=== PATIENT | male | born 1960 | race American Indian/Alaskan Native ===

== ENCOUNTER 2018-02-08 10:19 | Emergency (ER) | payer OTHER ==
[2018-02-08] MEDS ORDERED: Aspirin 81 MG Tab.Chew PO ONE (11:42)
[2018-02-08] MEDS ORDERED: Heparin Sodium 5,000 Units/ML Vial IVPUSH ONE (11:44)
--- NOTE | 2018-02-08 11:47 | EDM.PDOC ---
ED HPI GENERAL MEDICAL PROBLEM - General Chief Complaint: Cardiovascular Problem Stated Complaint: IRREGULAR HEARTBEAT Time Seen by Provider: 02/08/18 10:36 Source of Information: Reports: Patient, RN Notes Reviewed - History of Present Illness INITIAL COMMENTS - FREE TEXT/NARRATIVE: 58-year-old male comes in with concern about palpitations, heartburn discomfort becoming more frequent and mild dizziness. He operates heavy equipment. He was at work yesterday when he did develop what he thought was heartburn type discomfort of his anterior chest. when questioned about that he does admit that there was a heaviness component to that without radiation. The pain did go away last evening. He had another 20-30 minute episode of discomfort this morning and felt he better get that checked out. He has history of hypertension , has history of Crohn's disease. He has no known personal history for coronary artery disease. He is not diabetic. He does chew tobacco. He does have a positive family history for heart disease with a younger sister requiring open heart surgery about 3 years ago. He has had occasional heartburn in the past. He thought his discomfort yesterday and today was also heartburn. He denies history for known peptic ulcer disease. There has been no recent GI bleeding. - Related Data Allergies Allergy/AdvReac Type Severity Reaction Status Date / Time No Known Allergies Allergy Verified 02/08/18 10:26 Home Meds: Home Meds Adalimumab [Humira] 10 mg SQ ASDIRECTED 02/08/18 [History] Cholecalciferol (Vitamin D3) [Vitamin D3] 1,000 unit PO DAILY 02/08/18 [History] Colestipol [Colestipol HCl] 1 gm PO BEDTIME 02/08/18 [History] Doxazosin [Doxazosin Mesylate] 2 mg PO DAILY 02/08/18 [History] Omeprazole 20 mg PO DAILY 02/08/18 [History] Past Medical History Cardiovascular History: Reports: Hypertension Gastrointestinal History: Reports: GERD - Past Surgical History GI Surgical History: Reports: Colostomy Social & Family History - Tobacco Use Smoking Status *Q: Never Smoker Second Hand Smoke Exposure: No - Recreational Drug Use Recreational Drug Use: No ED ROS GENERAL - Review of Systems Review Of Systems: See Below Constitutional: Denies: Fever, Chills, Diaphoresis HEENT: Reports: No Symptoms Respiratory: Reports: Cough. Denies: Shortness of Breath, Pleuritic Chest Pain Cardiovascular: Reports: Chest Pain GI/Abdominal: Denies: Abdominal Pain, Nausea, Vomiting Musculoskeletal: Denies: Shoulder Pain, Arm Pain, Back Pain Skin: Reports: No Symptoms Neurological: Reports: Dizziness (Mild, gone). Denies: Trouble Speaking, Difficulty Walking, Weakness ED EXAM, GENERAL - Physical Exam Exam: See Below General Appearance: Alert, No Apparent Distress Eye Exam: Bilateral Eye: PERRL Throat/Mouth: Normal Inspection Head: Atraumatic Neck: Supple, Full Range of Motion Respiratory/Chest: No Respiratory Distress, Lungs Clear, Normal Breath Sounds Cardiovascular: Regular Rate, Rhythm GI/Abdominal: Soft, Non-Tender Back Exam: Normal Inspection Extremities: Normal Inspection. No: Pedal Edema, Leg Pain, Increased Warmth, Redness Neurological: Alert, Oriented, No Motor/Sensory Deficits Skin Exam: Warm, Dry, Normal Color EKG INTERPRETATION EKG Date: 02/08/18 Rhythm: NSR Rate (Beats/Min): 67 Fletcher: Normal P-Wave: Present QRS: Normal ST-T: Other (t wave inversion lead III, slight st depression III and AVF) Course - Vital Signs Last Recorded V/S: Last Vital Signs Temp 98 F 02/08/18 10:25 Pulse 67 02/08/18 10:25 Resp 16 02/08/18 10:25 BP 141/94 H 02/08/18 10:25 Pulse Ox 95 02/08/18 10:25 - Orders/Labs/Meds Orders: Active Orders 24 hr Category Date Time Status EKG 12 Lead [EKG Documentation Completion] [RC] STAT Care 02/08/18 10:48 Active EKG Documentation Completion [RC] ASDIRECTED Care 02/08/18 10:42 Active EKG 12 Lead [EK] Stat Ther 02/08/18 10:42 Ordered Labs: Laboratory Tests 02/08/18 02/08/18 Range/Units 10:30 10:30 WBC 5.54 (4.23-9.07) K/mm3 RBC 4.49 L (4.63-6.08) M/mm3 Hgb 13.7 (13.7-17.5) gm/L Hct 41.0 (40.1-51.0) % MCV 91.3 (79.0-92.2) fl MCH 30.5 (25.7-32.2) pg MCHC 33.4 (32.2-35.5) g/dl RDW Std Deviation 47.0 H (35.1-43.9) fL Plt Count 196 (163-337) K/mm3 MPV 9.3 L (9.4-12.3) fl Neut % (Auto) 59.7 (34.0-67.9) % Lymph % (Auto) 30.7 (21.8-53.1) % [place] % (Auto) 7.9 (5.3-12.2) % Eos % (Auto) 1.1 (0.8-7.0) Baso % (Auto) 0.4 (0.1-1.2) % Neut # (Auto) 3.31 (1.78-5.38) K/mm3 Lymph # (Auto) 1.70 (1.32-3.57) K/mm3 [place] # (Auto) 0.44 (0.30-0.82) K/mm3 Eos # (Auto) 0.06 (0.04-0.54) K/mm3 Baso # (Auto) 0.02 (0.01-0.08) K/mm3 Sodium 139 (136-145) mEq/L Potassium 3.9 (3.5-5.1) mEq/L Chloride 104 (98-107) mEq/L Carbon Dioxide 25 (21-32) mEq/L Anion Gap 13.9 (5-15) BUN 8 (7-18) mg/dL Creatinine 1.1 (0.7-1.3) mg/dL Est Cr Clr Drug Dosing 74.98 mL/min Estimated GFR (MDRD) > 60 (>60) mL/min BUN/Creatinine Ratio 7.3 L (14-18) Glucose 117 H (74-106) mg/dL Calcium 8.6 (8.5-10.1) mg/dL Total Bilirubin 0.5 (0.2-1.0) mg/dL AST 14 L (15-37) U/L ALT 31 (16-63) U/L Alkaline Phosphatase 152 H (46-116) U/L Troponin I 0.353 H* (0.00-0.056) ng/mL Total Protein 7.0 (6.4-8.2) g/dl Albumin 3.7 (3.4-5.0) g/dl Globulin 3.3 gm/dL Albumin/Globulin Ratio 1.1 (1-2) Meds: Medications Discontinued Medications Generic Name Dose Route Start Last Admin Trade Name Sushma PRN Reason Stop Dose Admin Aspirin 324 mg 02/08/18 11:42 02/08/18 11:51 Aspirin PO 02/08/18 11:43 324 mg ONETIME ONE Administration Heparin Sodium (Porcine) 4,000 units 02/08/18 11:44 02/08/18 11:51 Heparin Sodium IVPUSH 02/08/18 11:45 4,000 units ONETIME ONE Administration Heparin Sodium/Dextrose 25,000 units in 500 mls @ 20 mls/hr 02/08/18 12:00 11:52 Heparin 25,000 Units In D5w 500 Ml IV 20 mls/hr TITRATE AYUSH Administration Protocol 1,000 UNITS/HR Sodium Chloride 1,000 mls @ 75 mls/hr 02/08/18 12:30 Normal Saline IV ASDIRECTED AYUSH - Re-Assessments/Exams Free Text/Narrative Re-Assessment/Exam: 02/08/18 12:10 Troponin surprisingly came back elevated at 0.34. EKG as documented did show T- wave inversion in lead [address] depression in 2 of the inferior leads. There is no ST elevation. He hasbeen given aspirin 324 mg by mouth. He has been given heparin 4000 unit bolus and started on 1000 unit per hour heparin Drip. I discussed this with Dr. Mitchell, [facility] on-call for [facility]. She does accept patient in transfer. He has had prior surgery there for his Crohn's disease, that is his request for hospital transfer. He remains pain-free while here in the ED. Vitals been stable. He continues to be in sinus rhythm, no ectopy. He will be transferred by ground ambulance. 02/08/18 14:41 Departure - Departure Time of Disposition: 11:51 Disposition: Home, Self-Care 01 Condition: Fair Clinical Impression: Non-STEMI (non-ST elevated myocardial infarction) Referrals: PCP,Not In Area [Primary Care Provider] - Forms: ED Department Discharge - My Orders Last 24 Hours: My Active Orders 02/08/18 10:42 EKG Documentation Completion [RC] ASDIRECTED EKG 12 Lead [EK] Stat 02/08/18 10:48 EKG 12 Lead [EKG Documentation Completion] [RC] STAT - Assessment/Plan Last 24 Hours: My Active Orders 02/08/18 10:42 EKG Documentation Completion [RC] ASDIRECTED EKG 12 Lead [EK] Stat 02/08/18 10:48 EKG 12 Lead [EKG Documentation Completion] [RC] STAT
[2018-02-08] MEDS ORDERED: Heparin Sodium/D5W 25,000 UNITS/500 ML BAG IV SCH (12:00)
[2018-02-08] MEDS ORDERED: Sodium Chloride 0.9% 1,000 ML IV SCH (12:30)
--- NOTE | 2018-02-08 13:17 | CR ---
Chest: Portable view of the chest was obtained. Comparison: No prior chest x-ray. Heart size is normal. Tortuous thoracic aorta is seen. Lungs are clear with no acute parenchymal change. Old healed left clavicle fracture is noted. Degenerative change and mild scoliosis is noted within the spine. Impression: 1. Incidental findings. Nothing acute is seen. Diagnostic code #2
== END 2018-02-08 12:20 | disposition home or self-care (01) ==
LOC: JD.ED 10:19
DX: I21.4 Non-ST elevation (NSTEMI) myocardial infarction (principal); I10 Essential (primary) hypertension; K21.9 Gastro-esophageal reflux disease without esophagitis; Z79.899 Other long term (current) drug therapy
CPT/HCPCS: 36415; 71045; 80053; 84484; 85025; 93005; 96365; 96375; 99285; A9270; J1644; 93010